=== PATIENT | female | born 1995 | race Caucasian/White ===

== ENCOUNTER 2020-03-27 13:10 | Emergency (ER) | payer OTHER ==
[~2020-03-27] VITALS: Ht 157.5 cm; Wt 49.9 kg
[2020-03-27 13:17] VITALS: BP 136/91
== END 2020-03-27 14:48 | disposition home or self-care (01) ==
LOC: ER 13:16
DX: M79.661 Pain in right lower leg (principal); R00.0 Tachycardia, unspecified; Z98.890 Other specified postprocedural states
CPT/HCPCS: 93971-TC